=== PATIENT | female | born 1975 | race Two or more races ===

== ENCOUNTER 2019-03-07 11:29 | Inpatient (IN) | payer OTHER ==
[~2019-03-07] VITALS: Ht 160 cm; Wt 3.6 kg
[2019-03-14] MEDS ORDERED: PRENATABS RX T1 EACH PO (13:17)
== END 2019-03-26 14:03 | disposition home or self-care (01) | DRG 785 ==
LOC: SURG-SUITE 03-24 07:00 → O/R 03-24 07:00 → OB/GYN 03-24 07:15 → SURG-SUITE 03-24 08:55 → OB/GYN 03-24 12:00 → SURG-SUITE 03-26 14:03
PROVIDERS: ADMIT Obstetrics & Gynecology
PROC: 0UL70ZZ Occlusion of Bilateral Fallopian Tubes, Open Approach (ICD-10-PCS; 2019-03-24)
PROC: 4A1HXCZ Monitoring of Products of Conception, Cardiac Rate, External Approach (ICD-10-PCS; 2019-03-24)
PROC: 10D00Z1 Extraction of Products of Conception, Low, Open Approach (ICD-10-PCS; principal; 2019-03-24 07:15)
DX: O82 Encounter for cesarean delivery without indication (principal); Z3A.39 39 weeks gestation of pregnancy; Z37.0 Single live birth; Z30.2 Encounter for sterilization